=== PATIENT | female | born 1990 | race African-American/Black ===

== ENCOUNTER 2024-10-29 13:53 | Emergency (ER) | payer OTHER, SELFPAY ==
--- NOTE | ~2024-10-29 | CT_ITS ---
CT abdomen pelvis w con Ordering provider: Jany Bains MD History: 34 years Female with . R flank pain . Comparison: None. Technique: CT abdomen and pelvis with IV and without oral contrast. Automated exposure control and it erative reconstruction technique were employed. The dose-length product was 1584.24 mGy-cm. 100 mL Om nipaque 350 was given IV. Findings: VISUALIZED LOWER CHEST: Normal. Trace of pericardial effusion. UPPER ABDOMINAL ORGANS: Liver: 2 small hypodensities with the largest measures 7.4 mm. Most likely tiny cysts. Follow-up advi sed. Gallbladder: Normal. Spleen: Normal. Stomach/duodenum: Normal. Pancreas: Normal. Adrenals: Normal. Kidneys: Hypodensity measuring 1.3 is seen in the left kidney midpole which is most likely inflammato ry in nature. Mass is less likely. Follow-up is advised. PELVIC ORGANS: The bladder is normal. Uterus: Multiple fibroids with necrotic changes are seen with the largest measures 9.2x 8.8 x 6.9 cm. Hyperdense area in the in the right ovary which may indicate a fracture follicle. Slightly prominent right ovary. BOWEL AND MESENTERY: Colon: No evidence of diverticulitis. Normal appendix. Small Bowel: Normal. No obstruction. Peritoneum/mesentery: No free air. Trace of Free fluid seen in the pelvis. No mesenteric lymphadenopa thy. Small mesenteric lymph nodes. RETROPERITONEUM: Normal aorta. No retroperitoneal lymphadenopathy. MUSCULOSKELETAL: Superficial soft tissues: The superficial soft tissues are normal. Bones: Age appropriate degenerative changes of the spine. Small hypodensity in the medial aspect of t he right iliac bone measuring 0.9 cm. Follow-up advised. IMPRESSION: 1. Multiple fibroids with necrotic changes. 2. Hypodensity in the left kidney midpole. Follow-up advised. 3. Trace of fluid in the pelvis. 4. Small hypodensity in the right iliac bone medially. Follow-up advised. Reviewed, dictated and finalized at [facility]
[2024-10-29 13:57] VITALS: BP 138/92; PULSE 100; RESP 18; TEMP 36.6; O2SAT 100
[2024-10-29 14:41] LABS: BEDSIDEPREGUCG Negative (Negative)
[2024-10-29 14:42] VITALS: BP 130/80; PULSE 93; RESP 16; O2SAT 100
[2024-10-29 14:53] LABS: Add Urine Microscopic? YES; Appearance Urine Clear (Clear); Bacteria Urine Rare /hpf; Bilirubin Urine Negative (Negative); Blood Urine 1+ (Negative); Color Urine Yellow (Yellow); Glucose Urine UA Negative (Negative); Ketones Urine Trace mg/dL (Negative); Leukocyte Esterase Ur Negative LEU/UL (Negative); Nitrate Urine Negative (Negative); Non Pathogenic Casts 0-2; Protein Urine 1+ mg/dL (Negative); RBC Urine 21-50 /hpf (0-2); Specific Grav Ur 1.022 (1.001-1.035); Squamous Epithelial Cell Urine Moderate /hpf (Few); WBC Urine 0-5 /hpf (0-3); pH Urine 7.5 (5.0-9.0)
[2024-10-29 15:03] LABS: Basophils Absolute Auto 0.1 K/mm3 (0.0-0.1); Basophils Percent Auto 0.7 % (0.2-1.2); Eosinophils Absolute Auto 0.1 K/mm3 (0-0.3); Eosinophils Percent Auto 1.3 % (0-4.4); Hematocrit 36.6 % (37.0-47.0); Hemoglobin 11.8 g/dL (12.0-15.0); Immature Granulocyte Absolute 0.03 K/mm3 (0.00-0.031); Immature Granulocyte Percent A 0.3 % (0-0.5); Lymphocytes Absolute Auto 1.95 K/mm3 (0.9-3.2); Lymphocytes Percent Auto 18.8 % (18.3-44.2); Mean Corpuscular HGB Conc 32.2 g/dl (32-36); Mean Corpuscular Hemoglobin 26.9 pg (26-34); Mean Corpuscular Volume 83.6 fl (80-100); Mean Platelet Volume 9.7 fl (7.4-10.4); Monocytes Absolute Auto 1.1 K/mm3 (0.1-0.6); Monocytes Percent Auto 10.3 % (2.6-8.5); Neutrophils Absolute Auto 7.2 K/mm3 (1.3-6.7); Neutrophils Percent Auto 68.6 % (45.5-73.1); Platelet Count Result 458 k/mm3 (150-375); Red Blood Count 4.38 M/mm3 (4.2-5.4); Red Cell Distribution Width 13.8 % (11.5-14.5); White Blood Count 10.4 K/mm3 (4.5-10.0)
--- NOTE | 2024-10-29 15:09 | ED.BACK ---
HPI - Back Pain/Injury General Chief Complaint: Back Pain/Injury Stated Complaint: right flank pain Time Seen by Provider: 10/29/24 14:10 History of Present Illness HPI Narrative: Patient with R flank pain radiating to suprapubic abdomen; +nausea/vomiting. [employer] told her she had RBC in the UA and that she needs to go to the ER. Related Data Allergies Allergy/AdvReac Type Severity Reaction Status Date / Time ibuprofen Allergy Intermediate Swelling Verified 10/29/24 15:53 of the Eye Review of Systems Review of Systems: All systems reviewed & are unremarkable except as noted in HPI and below Exam Narrative: EXAMINATION OF ORGAN SYSTEMS/BODY AREAS: Constitutional: Vital signs per nursing GENERAL: [No acute distress, non-toxic appearing.] HEAD: Normal with no signs of head trauma. EYES: EOMI, conjunctiva normal ENT: Hearing grossly intact LUNGS: Nonlabored breathing. HEART: [Regular rate and rhythm] ABD: [Soft], R CVA tenderness, suprapubic tenderness EXT: Normal range of motion SKIN: [No rashes or lesions.] NEURO: [Alert and oriented x 3. No gross focal sensory or strength deficits.] PSYCH: Normal affect Course Vital Signs Vital signs: Vital Signs Temperature 97.8 F 10/29/24 13:57 Pulse Rate 100 10/29/24 13:57 Respiratory Rate 18 10/29/24 13:57 Blood Pressure 138/92 H 10/29/24 13:57 Pulse Oximetry 100 10/29/24 13:57 Oxygen Delivery Room Air 10/29/24 13:57 Temperature 97.8 F 10/29/24 13:57 Pulse Rate 90 10/29/24 15:54 Respiratory Rate 16 10/29/24 15:54 Blood Pressure 165/94 H 10/29/24 15:54 Pulse Oximetry 100 10/29/24 15:54 Oxygen Delivery Room Air 10/29/24 13:57 MDM - Back Pain/Injury MDM Narrative Medical decision making narrative: 34-year-old female presenting here with suprapubic pain and right flank pain, differential includes pyelonephritis, kidney stone, appendicitis. Labs within acceptable limits, without any obvious signs of UTI, she does have some blood in her urine, CT showing necrotic fibroid. Discussed this with the patient, discussed with OBGYN, who recommends close follow-up in the clinic and starting NSAIDs at this time. Patient agreeable to this plan, she does not want to stay at the hospital. She has had initially with ibuprofen years ago, will trial Toradol here and watch closely for allergic reaction, she took a here and had no issues whatsoever and her pain has also gotten much better. Will prescribe Toradol with famotidine and she will follow up with OB with strict return precautions. Lab Data 10/29/24 14:51 10/29/24 14:51 Labs: Lab Results 10/29/24 10/29/24 10/29/24 Range/Units 14:38 14:39 14:51 WBC 10.4 H (4.5-10.0) K/mm3 RBC 4.38 (4.2-5.4) M/mm3 Hgb 11.8 L (12.0-15.0) g/dL Hct 36.6 L (37.0-47.0) % MCV 83.6 (80-100) fl MCH 26.9 (26-34) pg MCHC 32.2 (32-36) g/dl RDW 13.8 (11.5-14.5) % Plt Count 458 H (150-375) k/mm3 MPV 9.7 (7.4-10.4) fl Immature Gran % (Auto) 0.3 (0-0.5) % Neut % (Auto) 68.6 (45.5-73.1) % Lymph % (Auto) 18.8 (18.3-44.2) % [place] % (Auto) 10.3 H (2.6-8.5) % Eos % (Auto) 1.3 (0-4.4) % Baso % (Auto) 0.7 (0.2-1.2) % Lymph # (Auto) 1.95 (0.9-3.2) K/mm3 [place] # (Auto) 1.1 H (0.1-0.6) K/mm3 Eos # (Auto) 0.1 (0-0.3) K/mm3 Baso # (Auto) 0.1 (0.0-0.1) K/mm3 Abs Immat Gran (auto) 0.03 (0.00-0.031) K/mm3 Absolute Neuts (auto) 7.2 H (1.3-6.7) K/mm3 Absolute Nucleated RBC 0.000 (0.0-0.012) K/mm3 Nucleated RBC % 0.0 (0.0-0.2) % Sodium 138 (137-145) mmol/L Potassium 3.8 (3.4-5.0) mmol/L Chloride 102 (98-107) mmol/L Carbon Dioxide 24 (22-30) mmol/L Anion Gap 12 (4-12) mmol/L BUN 9 (7-17) mg/dL Creatinine 0.95 (0.7-1.0) mg/dL Estim Creat Clear Calc 97 ml/min Estimated GFR > 60 (59 - ) Glucose 89 (65-110) mg/dL Calcium 9.8 (8.4-10.2) mg/dL Total Bilirubin 0.6 (0.2-1.3) mg/dL AST 14 (14-36) U/L ALT 13 (6-35) U/L Alkaline Phosphatase 58 (38-126) U/L Total Protein 8.0 (6.3-8.2) g/dL Albumin 4.3 (3.5-5.1) g/dL Urine Color Yellow (Yellow) Urine Appearance Clear (Clear) Urine pH 7.5 (5.0-9.0) Ur Specific [place] 1.022 (1.001-1.035) Urine Protein 1+ H (Negative) mg/dL Urine Glucose (UA) Negative (Negative) mg/dL Urine Ketones Trace H (Negative) mg/dL Ur Blood (Man) 1+ H (Negative) Urine Nitrate Negative (Negative) Urine Bilirubin Negative (Negative) Urine Urobilinogen 1.0 (<2.0) mg/dL Leukocyte Esterase Rfl Negative (Negative) MARCELO/UL Urine RBC 21-50 H (0-2) /hpf Urine WBC 0-5 (0-3) /hpf Ur Squamous Epith Cells Moderate (Few) /hpf Urine Bacteria Rare /hpf Urine Casts 0-2 POC Urine HCG, Qual Negative (Negative) Discharge Plan Discharge Clinical Impression: Degeneration of uterine fibroid Patient Disposition: Home, Self-Care Condition: Stable Instructions: Uterine Fibroids (ED) Additional Instructions: Please follow up with the OBGYN; you can always return to the ER if symptoms worsen. Patient Language: Yi Prescriptions: New ferrous sulfate 325 mg (65 mg iron) tablet 325 mg PO DAILY Qty: 30 0RF ketorolac 10 mg tablet 10 mg PO Q6H PRN (Reason: pain) Qty: 20 0RF Rx Instructions: maximum total duration of 5 days from all oral, intranasal, or parenteral formulations famotidine 20 mg tablet 20 mg PO DAILY Qty: 30 0RF Follow-up/Referrals: Stevie Ruggiero MD [Physician] - 2 Days UNKNOWN,DOCTOR [Primary Care Provider] -
[2024-10-29 15:19] LABS: Alanine Aminotransferase 13 U/L (6-35); Albumin Level 4.3 g/dL (3.5-5.1); Alkaline Phosphatase 58 U/L (38-126); Anion Gap 12 mmol/L (4-12); Aspartate Amino Transferase 14 U/L (14-36); Bilirubin,Total 0.6 mg/dL (0.2-1.3); Blood Urea Nitrogen 9 mg/dL (7-17); Calcium 9.8 mg/dL (8.4-10.2); Carbon Dioxide 24 mmol/L (22-30); Chloride 102 mmol/L (98-107); Estimated CRCL calculation 97 ml/min; Estimated Glomerular Filt Rate > 60; Glucose 89 mg/dL (65-110); Potassium 3.8 mmol/L (3.4-5.0); Sodium 138 mmol/L (137-145)
[2024-10-29 15:54] VITALS: BP 165/94; PULSE 90; RESP 16; O2SAT 100
[2024-10-29] MEDS: MORPHINE SULFATE (*CRX) 4 MG/ML INJ IV PUSH (15:56)
[2024-10-29] MEDS: ONDANSETRON INJ 4 MG/2 ML VIAL IV PUSH (15:56)
[2024-10-29] MEDS: KETOROLAC 15 MG/ML VIAL (*BKC) IV PUSH (16:51)
[2024-10-29] MEDS: FAMOTIDINE 20 MG/2 ML VIAL IV PUSH (16:52)
[2024-10-29 17:46] VITALS: BP 134/94; PULSE 92; RESP 16; O2SAT 100
[2024-10-29 19:16] LABS: Chlamydia trachomatis NOT DETECTED (NOT DETECTE); Neisseria gonorrhoeae PCR NOT DETECTED (NOT DETECTE)
== END 2024-10-29 17:49 | disposition home or self-care (01) ==
PROVIDERS: Emergency Provider Emergency Medicine
DX: N85.8 Other specified noninflammatory disorders of uterus (principal)
CPT/HCPCS: 36415; 74177; 80053; 81001; 81025; 85025; 87491; 87591; 96374; 96375; 99284; J1885; J2270; J2405; Q9967